=== PATIENT | male | born 1980 | race Caucasian/White ===

== ENCOUNTER 2022-12-24 12:19 | Outpatient (CLI) | payer OTHER | END 2022-12-24 12:30 | disposition home or self-care (01) | LOC: MRI 12:19 | PROVIDERS: ATTEND Family Medicine | DX: M54.50 Low back pain, unspecified (principal) ==

== ENCOUNTER 2025-10-02 13:54 | Outpatient (CLI) | payer OTHER | END 2025-10-02 14:17 | disposition home or self-care (01) | LOC: MRI 13:54 | PROVIDERS: ATTEND Family Medicine | DX: M25.542 Pain in joints of left hand (principal); M65.4 Radial styloid tenosynovitis [de Quervain]; M65.90 Unspecified synovitis and tenosynovitis, unspecified site; M13.80 Other specified arthritis, unspecified site; M23.92 Unspecified internal derangement of left knee | CPT/HCPCS: 73721 ==